=== PATIENT | female | born 1960 | race Caucasian/White ===

== ENCOUNTER 2019-08-16 19:45 | Emergency (ER) | payer OTHER, SELFPAY ==
--- NOTE | ~2019-08-16 | CT_ITS ---
EXAMINATION: CT abdomen pelvis wo con DATE: 08/16/2019 20:40 INDICATION: Right flank pain TECHNIQUE: Computed tomography (CT) of the abdomen and pelvis was performed without intravenous contr ast. Automated exposure control and iterative reconstruction technique were employed. Exam dose: 345 .26 mGy-cm total exam DLP. COMPARISON: 05/12/2017 CT abdomen pelvis FINDINGS: Mild chronic discoid scarring in the middle lobe. Stable several millimeter left lower lobe nodule likely due to old granulomatous disease. Normal heart size. No pericardial or pleural effusion. The liver, gallbladder, spleen, pancreas and adrenal glands are unremarkable on this limited noncontr ast examination. There is bilateral perinephric stranding No ureteral calculus or hydroureteronephrosis. There is atherosclerotic calcification of the abdominal aorta, iliac arteries but no aneurysm. No int raperitoneal or retroperitoneal or pelvic mass lesion or adenopathy or ascites. Status post hysterectomy. The urinary bladder is evacuated, is essentially unremarkable. There is mild colonic diverticulosis; no CT evidence of diverticulitis. There is some fluid levels in the right colon and small bowel but no abnormal small or large bowel dilatation, pneumatosis or intr aperitoneal free air. The appendix is not identified. IMPRESSION: Occasional small bowel and right colon air-fluid levels which may be due to enterocoliti s Mild colonic diverticulosis Bilateral perinephric stranding; consider urinalysis correlation to exclude pyelonephritis Status post hysterectomy The appendix is not identified Reviewed, dictated and finalized at [facility]. Reviewed, dictated and finalized at [facility]. IMPRESSION: Occasional small bowel and right colon air-fluid levels which may be due to enterocolitis Mild colonic diverticulosis Bilateral perinephric stranding; consider urinalysis correlation to exclude avis lonephritis Status post hysterectomy The appendix is not identified
[2019-08-16 19:48] VITALS: BP 126/94; PULSE 99; RESP 14; TEMP 36.8; O2SAT 100
--- NOTE | 2019-08-16 20:11 | ED.GENADULT ---
HPI - General Adult General Chief complaint: Urogenital-Female Stated complaint: i am having pain in my kidneys Time Seen by Provider: 08/16/19 19:57 Source: RN notes reviewed History of Present Illness HPI narrative: Patient presents emergency department from home for flank pain. Patient states symptoms began approximately 1 week ago. The pain is located in the right flank and does not radiate. Described as sharp and stabbing. Patient was seen by her PCP diagnosed with UTI and placed on 3-day course of antibiotics with minimal relief. She notes continued pain. States she took no pain medication today. Denies any fevers or chills chest pain shortness of breath diarrhea vomiting or any other symptoms. Related Data Allergies Allergy/AdvReac Type Severity Reaction Status Date / Time amitriptyline Allergy Mild Rash Verified 08/16/19 20:12 erythromycin base Allergy Mild Rash Verified 08/16/19 20:12 nitrofurantoin Allergy Unknown Unknown Verified 08/16/19 20:12 sulfamethoxazole Allergy Unknown Rash Verified 08/16/19 20:12 trimethoprim Allergy Unknown Rash Verified 08/16/19 20:12 Contrast Media Allergy Unknown Nausea and Uncoded 09/23/18 08:46 Vomiting Review of Systems Review of Systems: Narrative: Gen.: Denies fevers or chills ENT: Denies congestion Respiratory: Denies shortness of breath or cough CV: Denies chest pain or palpitations GI: See HPI denies burning, urgency, frequency or hematuria Musculoskeletal: Denies back pain or muscle pain Neuro: Denies numbness, tingling, weakness or focal weakness Skin: Denies rash Except as documented, all other systems reviewed and negative [facility] Past Medical History Medical History (Updated 08/16/19 @ 22:20 by Edis Caraballo DO) Diabetes mellitus Hypertension Seizures Family History Family History (Updated 05/28/18 @ 10:24 by DOCTOR UNKNOWN) Mother Diabetes mellitus Family history of congenital heart disease Father Family history of congenital heart disease Family history of malignant neoplasm Social History Social History (Updated 08/16/19 @ 20:12 by Edis Caraballo DO) Smoking status: Never smoker Alcohol intake: never Exam Narrative: Exam Narrative: APPEARANCE: No acute distress, nontoxic, resting in bed EYES: EOMI HEENT: Normocephalic, atraumatic, OMM RESPIRATORY: No respiratory distress Clear to auscultation bilaterally with no rhonchi wheezing or rales. CARDIOVASCULAR: Regular rate and rhythm without murmurs rubs or gallops. ABDOMINAL: Soft, nontender, nondistended, no rebound or guarding right flank tenderness no overlying rash, pain with rotation of the torso MUSCULOSKELETAl: Moves all extremities. No clubbing, cyanosis or edema. NEURO: Awake and alert. Following commands, speech normal, no focal deficits SKIN:: Warm, dry. No rashes lesions or abrasions PSYCHIATRIC: Normal affect/mood, Course Course Emergency Course: Reviewed CT scan. The patient with no abdominal pain or diarrhea repeat abdominal exam soft and nontender doubt any enterocolitis will treat for UTI Discussed with patient results of workup and diagnosis. Discussed need for follow-up with primary care, proper use of medication, and reasons to return to the emergency department. Patient understands and agrees to current treatment plan Vital Signs Vital signs: Vital Signs Temperature 98.2 F 08/16/19 19:48 Pulse Rate 99 08/16/19 19:48 Respiratory Rate 14 08/16/19 19:48 Blood Pressure 126/94 H 08/16/19 19:48 Pulse Oximetry 100 08/16/19 19:48 Temperature 98.2 F 08/16/19 19:48 Pulse Rate 87 08/16/19 21:43 Respiratory Rate 16 08/16/19 21:43 Blood Pressure 119/74 08/16/19 21:43 Pulse Oximetry 97 08/16/19 21:43 Medical Decision Making Vital Signs Vital Signs: Vital Signs Temperature 98.2 F 08/16/19 19:48 Pulse Rate 99 08/16/19 19:48 Respiratory Rate 14 08/16/19 19:48 Blood Pressure 126/94 H 08/16/19 19:48 Pulse Oxim
[2019-08-16 20:14] LABS: Basophils Absolute Auto 0.1 K/mm3 (0.0-0.1); Basophils Percent Auto 0.4 % (0.2-1.2); Eosinophils Absolute Auto 0.3 K/mm3 (0-0.3); Eosinophils Percent Auto 2.4 % (0-4.4); Hematocrit 40.9 % (37.0-47.0); Hemoglobin 13.4 g/dL (12.0-15.0); Immature Granulocyte Absolute 0.06 K/mm3 (0.00-0.031); Immature Granulocyte Percent A 0.5 % (0-0.5); Lymphocytes Absolute Auto 2.56 K/mm3 (0.9-3.2); Lymphocytes Percent Auto 22.9 % (18.3-44.2); Mean Corpuscular HGB Conc 32.8 g/dl (32-36); Mean Corpuscular Hemoglobin 29.6 pg (26-34); Mean Corpuscular Volume 90.5 fl (80-100); Monocytes Absolute Auto 0.7 K/mm3 (0.1-0.6); Monocytes Percent Auto 6.6 % (2.6-8.5); Neutrophils Absolute Auto 7.5 K/mm3 (1.3-6.7); Neutrophils Percent Auto 67.2 % (45.5-73.1); Platelet Count Result 349 k/mm3 (150-375); Red Blood Count 4.52 M/mm3 (4.2-5.4); White Blood Count 11.2 K/mm3 (4.5-10.0)
[2019-08-16] MEDS: SODIUM CHLORIDE 0.9% IV 1,000 ML 999 ML IV CONT (20:19)
[2019-08-16] MEDS: KETOROLAC 30 MG/ML VIAL (*BKC) IV PUSH (20:19)
[2019-08-16 20:27] LABS: Blood Urea Nitrogen 17 mg/dL (7-17); Carbon Dioxide 24 mmol/L (22-30); Chloride 101 mmol/L (98-107); Estimated CRCL calculation 38 ml/min; Estimated Glomerular Filt Rate 42; Glucose 224 mg/dL (65-105); Potassium 4.2 mmol/L (3.4-5.0); Sodium 137 mmol/L (137-145)
--- NOTE | 2019-08-16 21:26 | PC.NURSE ---
PT UNABLE TO URINATE. REFUSING CATH.
[2019-08-16 21:43] VITALS: BP 119/74; PULSE 87; RESP 16; O2SAT 97
[2019-08-16 22:12] LABS: Add Urine Microscopic? YES; Appearance Urine Clear (Clear); Bilirubin Urine Negative (Negative); Blood Urine Negative (Negative); Color Urine Yellow (Yellow); Glucose Urine UA Negative (Negative); Ketones Urine Trace mg/dL (Negative); Leukocyte Esterase Ur Trace LEU/UL (Negative); Mucus Urine Rare /lpf; Nitrate Urine Negative (Negative); Protein Urine 2+ mg/dL (Negative); Specific Grav Ur 1.023 (1.001-1.035); Squamous Epithelial Cell Urine Rare /hpf (Few); WBC Urine 21-30 /hpf
== END 2019-08-16 22:37 | disposition home or self-care (01) ==
PROVIDERS: Emergency Medicine; Emergency Provider Emergency Medicine
DX: N12 Tubulo-interstitial nephritis, not specified as acute or chronic (principal); K57.30 Diverticulosis of large intestine without perforation or abscess without bleeding; E11.9 Type 2 diabetes mellitus without complications; I10 Essential (primary) hypertension; G40.909 Epilepsy, unspecified, not intractable, without status epilepticus
CPT/HCPCS: 36415; 51701; 74176; 80048; 81001; 85025; 87086; 96361; 96374; 96375; 99284; J0696; J1885; J7030

== ENCOUNTER 2019-12-11 07:32 | Emergency (ER) | payer OTHER, SELFPAY ==
--- NOTE | ~2019-12-11 | CT_ITS ---
EXAMINATION: CT abdomen pelvis wo con DATE: 12/11/2019 08:33 INDICATION: Right-sided abdominal pain. TECHNIQUE: Computed tomography (CT) of the abdomen and pelvis was performed without intravenous contr ast. Automated exposure control and iterative reconstruction technique were employed. The dose-length product was 798.27 mGy-cm. COMPARISON: CT abdomen and pelvis 08/16/2019 FINDINGS: The visualized portions of the lung bases demonstrate mild atelectasis. No pleural effusion . The heart size is normal. There are coronary artery calcifications. No pericardial effusion. There is a small sliding hiatal hernia. There is diffuse hepatic steatosis. The gallbladder, spleen, pancre as, adrenal glands, and kidneys are normal. There is no urolithiasis. There is diverticulosis of the colon without evidence of diverticulitis. There are no dilated loops of bowel. The appendix is not vi sualized. There are no pathologically enlarged lymph nodes. There is no free intraperitoneal fluid. T here is mild lumbar spondylosis. IMPRESSION: 1. Small sliding hiatal hernia. 2. Diffuse hepatic steatosis. Reviewed, dictated and finalized at location [facility].
--- NOTE | ~2019-12-11 | XR_ITS ---
XR chest 1V portable DATE: 12/11/2019 08:08 INDICATION: Chest pain, back pain TECHNIQUE: Portable AP chest on 12/11/2019 at 0809 hours COMPARISON: 09/22/2018 portable AP chest FINDINGS: Heart size is normal. No hilar or mediastinal enlargement. No pulmonary infiltrate or conso lidation, pleural effusion or pulmonary vascular congestion or pneumothorax. Diffuse osteopenia. IMPRESSION: No active cardiopulmonary disease Reviewed, dictated and finalized at [facility].
--- NOTE | ~2019-12-11 | NM_ITS ---
EXAMINATION: NM pulmonary perfusion DATE: 12/11/2019 12:28 INDICATION: Back pain and shortness of breath TECHNIQUE: 5.019 mCi Tc-99m MAA by intravenous route. Scintigraphic images of the chest were obtaine d. COMPARISON: Chest radiograph dated 12/11/2019 FINDINGS: There is normal homogeneous perfusion throughout the lungs. No focal perfusion defects appreciated. IMPRESSION: 1. Normal study. Reviewed, dictated and finalized at [facility]. IMPRESSION: 1. Normal study.
[2019-12-11 08:03] VITALS: BP 142/95; PULSE 108; RESP 22; TEMP 37.2; O2SAT 97
[2019-12-11 08:07] LABS: Basophils Percent Auto 0.2 % (0.2-1.2); Eosinophils Percent Auto 0.2 % (0-4.4); Hematocrit 36.3 % (37.0-47.0); Hemoglobin 12.2 g/dL (12.0-15.0); Immature Granulocyte Absolute 0.06 K/mm3 (0.00-0.031); Immature Granulocyte Percent A 0.5 % (0-0.5); Lymphocytes Absolute Auto 0.68 K/mm3 (0.9-3.2); Lymphocytes Percent Auto 5.4 % (18.3-44.2); Mean Corpuscular HGB Conc 33.6 g/dl (32-36); Mean Corpuscular Hemoglobin 29.3 pg (26-34); Mean Corpuscular Volume 87.3 fl (80-100); Monocytes Percent Auto 7.6 % (2.6-8.5); Neutrophils Absolute Auto 10.8 K/mm3 (1.3-6.7); Neutrophils Percent Auto 86.1 % (45.5-73.1); Platelet Count Result 185 k/mm3 (150-375); Red Blood Count 4.16 M/mm3 (4.2-5.4); White Blood Count 12.6 K/mm3 (4.5-10.0)
[2019-12-11 08:09] LABS: Add Urine Microscopic? NO; Appearance Urine Clear (Clear); Bilirubin Urine Negative (Negative); Blood Urine Negative (Negative); Color Urine Yellow (Yellow); Glucose Urine UA Negative (Negative); Ketones Urine Negative (Negative); Leukocyte Esterase Ur Negative LEU/UL (Negative); Nitrate Urine Negative (Negative); Protein Urine Negative (Negative); Specific Grav Ur 1.015 (1.001-1.035); Urobilinogen Urine Negative mg/dL (<2.0)
--- NOTE | 2019-12-11 08:17 | ED.GENADULT ---
HPI - General Adult General Chief complaint: Back Pain/Injury Stated complaint: All Over Pain Time Seen by Provider: 12/11/19 07:43 Source: patient and family History of Present Illness HPI narrative: 59 years old white female presents with intermittent mid and lower back pain over 1 month ago. She denies any aggravating or relieving factors. Usually comes anytime and lasts for about 20 minutes then resolves. Patient also complaining of general body aches nausea and vomited twice today. Could not sleep because of the general body aches. Patient denies any fever, chills, chest pain, shortness of breath, headache, sore throat, exposure to anybody with COVID-19. History of diabetes, hypertension, hyperlipidemia, fibromyalgia. Patient smokes intermittently, does not drink or using drugs. Currently her main complaint is abdominal pain Related Data Home Medications Medication Instructions Recorded Confirmed aspirin 12/11/19 atorvastatin 12/11/19 carvedilol 12/11/19 celecoxib mg 12/11/19 cholecalciferol (vitamin D3) 1,250 mcg PO WEEKLY 12/11/19 12/11/19 clopidogrel 12/11/19 dulaglutide [Trulicity] mg SUBCUT 12/11/19 duloxetine mg PO 12/11/19 ezetimibe [Zetia] mg 12/11/19 fenofibrate mg 12/11/19 glipizide mg PO 12/11/19 12/11/19 insulin glargine [Lantus Solostar SUBCUT 12/11/19 U-100 Insulin] linaclotide [Linzess] 290 mcg PO DAILY 12/11/19 12/11/19 losartan 12/11/19 nitroglycerin [Nitro] 12/11/19 sitagliptin-metformin [Janumet XR] tablet PO 12/11/19 Allergies Allergy/AdvReac Type Severity Reaction Status Date / Time amitriptyline Allergy Mild Rash Verified 12/11/19 08:14 erythromycin base Allergy Mild Rash Verified 12/11/19 08:14 nitrofurantoin Allergy Unknown Unknown Verified 12/11/19 08:14 sulfamethoxazole Allergy Unknown Rash Verified 12/11/19 08:14 trimethoprim Allergy Unknown Rash Verified 12/11/19 08:14 Contrast Media Allergy Unknown Nausea and Uncoded 12/11/19 08:14 Vomiting Review of Systems Review of Systems: Narrative: CONSTITUTIONAL: Denies fever, chills, or sweats. EYES: Denies visual changes, redness, or discharge. ENT: Denies rhinorrhea, congestion, sore throat, or otalgia. CARDIOVASCULAR: Denies chest pain, palpitations, or edema. RESPIRATORY: Denies cough or dyspnea. GASTROINTESTINAL: Denies abdominal pain, nausea, vomiting, or diarrhea. GENITOURINARY: Denies dysuria or hematuria. SKIN: Denies rash or itching. MUSCULOSKELETAL: Denies back pain, joint pain, or myalgia. NEUROLOGIC: Denies headache, numbness, or weakness. PSYCHIATRIC: Denies anxiety or depression. [facility] Past Medical History Medical History Diabetes mellitus Hypertension Seizures Family History Family History Mother Diabetes mellitus Family history of congenital heart disease Father Family history of congenital heart disease Family history of malignant neoplasm Social History Social History Smoking status: Never smoker Alcohol intake: never Exam Narrative: Exam Narrative: General appearance: Well-developed, well-nourished, looks ill, at the bedside Skin: Normal color Head: Normocephalic, nontraumatic Eyes: Clear conjunctiva ENT: Oropharynx normal, ears normal, nose normal Neck: Supple, nontender Chest and respiratory: Airway patent, no respiratory distress, no accessory muscle use Heart: Regular rate/rhythm Abdomen: Soft, moderate tenderness right abdomen, no guarding or rebound, no organomegaly, quiet bowel sounds Vascular: Normal peripheral pulses, normal capillary refill. Musculoskeletal: Normal range of motion, nontender back Neurologic: Alert and oriented ?3, [employer] is normal as tested, no gross motor deficit
[2019-12-11 08:20] LABS: INR 1.1; Prothrombin Time 13.5 Seconds (11.1-14.7)
[2019-12-11 08:21] LABS: Partial Thromboplastin Time 29.7 SECONDS (22.3-36.8)
[2019-12-11] MEDS: HYDROmorphone HCL INJ (*CRX) 1 MG/ML SYR 0.5 MG IV PUSH ×2 (08:22→14:08)
[2019-12-11] MEDS: SODIUM CHLORIDE 0.9% IV 1,000 ML 999 ML IV CONT (08:22)
[2019-12-11 08:23] LABS: D Dimer 1.38 ug/mL (<0.48)
[2019-12-11] MEDS: ONDANSETRON INJ 4 MG/2 ML VIAL 8 MG IV PUSH (08:23)
[2019-12-11 08:24] LABS: Alanine Aminotransferase 24 U/L (4-35); Alkaline Phosphatase 121 U/L (38-126); Anion Gap 9 mmol/L (8-16); Aspartate Amino Transferase 31 U/L (14-36); Bilirubin,Total 0.6 mg/dL (0.2-1.3); Blood Urea Nitrogen 13 mg/dL (7-17); Calcium 9.5 mg/dL (8.4-10.2); Carbon Dioxide 22 mmol/L (22-30); Chloride 104 mmol/L (98-107); Estimated CRCL calculation 51 ml/min; Estimated Glomerular Filt Rate 51; Glucose 151 mg/dL (65-105); Sodium 135 mmol/L (137-145)
[2019-12-11 08:32] LABS: Troponin I < 0.012 ng/mL (0.000-0.034)
[2019-12-11 08:33] LABS: Erythrocyte Sedimentation Rate 28 mm/hr (0-20)
[2019-12-11 08:36] LABS: CRP 16.1 mg/dL (<1.0)
--- NOTE | 2019-12-11 09:05 | ECG_ITS ---
Measurements Intervals [place] Rate: 106 P: 26 OK: 155 QRS: -19 QRSD: 97 T: 49 QT: 319 QTc: 425 Interpretive Statements SINUS TACHYCARDIA DELAYED PRECORDIAL R/S TRANSITION BORDERLINE ST ABNORMALITY- HIGH LATERAL LEADS ABNORMAL ECG Electronically Signed On 12-11-2019 10:27:12 CDT by Fernando Bocanegra D.O.
[2019-12-11 09:30] VITALS: BP 112/87; PULSE 88; RESP 24; O2SAT 98
[2019-12-11] MEDS: ONDANSETRON INJ 4 MG/2 ML VIAL IV PUSH (14:06)
[2019-12-11 14:45] VITALS: BP 128/69; PULSE 95; RESP 14; O2SAT 96
== END 2019-12-11 14:45 | disposition home or self-care (01) ==
PROVIDERS: Emergency Provider Emergency Medicine
DX: M54.5 Low back pain (principal); M54.6 Pain in thoracic spine; R10.9 Unspecified abdominal pain; E11.9 Type 2 diabetes mellitus without complications; I10 Essential (primary) hypertension; E78.5 Hyperlipidemia, unspecified; M79.7 Fibromyalgia; Z79.82 Long term (current) use of aspirin; Z79.4 Long term (current) use of insulin; R00.0 Tachycardia, unspecified; R94.31 Abnormal electrocardiogram [ECG] [EKG]; K76.0 Fatty (change of) liver, not elsewhere classified; K44.9 Diaphragmatic hernia without obstruction or gangrene
CPT/HCPCS: 36415; 71045; 74176; 78580; 80053; 81003; 84484; 85025; 85380; 85610; 85652; 85730; 86140; 93005; 96361; 96374; 96375; 96376; 99284; A9540; J1170; J2405; J7030

== ENCOUNTER 2021-11-21 10:58 | Emergency (ER) | payer OTHER, SELFPAY ==
--- NOTE | ~2021-11-21 | XR_ITS ---
EXAMINATION: XR chest 2V DATE: 11/21/2021 13:02 INDICATION: Cough and shortness of breath TECHNIQUE: PA and lateral views of the chest are obtained. COMPARISON: 12/11/2019 FINDINGS: The lungs are free of acute opacities. No pleural effusion or pneumothorax. The cardiomedia stinal silhouette is normal. A coronary artery stent is noted. There is mild thoracic spondylosis. IMPRESSION: 1. No acute cardiopulmonary abnormality. Reviewed, dictated and finalized at [facility].
[2021-11-21 11:13] VITALS: BP 153/102; PULSE 97; RESP 18; TEMP 36.4; O2SAT 100
--- NOTE | 2021-11-21 12:46 | ED.URI ---
HPI - URI/Sore Throat General Chief Complaint: Upper Respiratory Infection Stated Complaint: I think I have RSV Time Seen by Provider: 11/21/21 11:46 History of Present Illness HPI Narrative: Patient is a 61-year-old female presenting with URI symptoms. Patient states that she was recently with her sister who also developed cold-like symptoms last week. Her sister tested positive for RSV. Patient states that she developed similar symptoms about 2 to 3 days ago. States she has nasal congestion as well as a cough. States she is concerned that she may have RSV. She is vaccinated for COVID-19. She denies headache, fevers, lightheadedness, chest pain, shortness of breath, abdominal pain, nausea or vomiting, diarrhea, leg swelling. Related Data Home Medications Medication Instructions Recorded Confirmed aspirin 81 mg tablet,delayed 12/11/19 release atorvastatin 40 mg tablet 12/11/19 carvedilol 12.5 mg tablet 12/11/19 celecoxib 100 mg capsule mg 12/11/19 cholecalciferol (vitamin D3) 1,250 1,250 mcg PO WEEKLY 12/11/19 12/11/19 mcg (50,000 unit) tablet clopidogrel 75 mg tablet 12/11/19 dulaglutide 1.5 mg/0.5 mL mg subcut 12/11/19 subcutaneous pen injector (Trulicity) duloxetine 60 mg capsule,delayed mg PO 12/11/19 release ezetimibe 10 mg tablet (Zetia) mg 12/11/19 fenofibrate 54 mg tablet mg 12/11/19 glipizide 2.5 mg tablet, extended mg PO 12/11/19 12/11/19 release 24 hr insulin glargine 100 unit/mL (3 subcut 12/11/19 mL) subcutaneous pen (Lantus Solostar U-100 Insulin) linaclotide 290 mcg capsule 290 mcg PO DAILY 12/11/19 12/11/19 (Linzess) losartan 100 mg tablet 12/11/19 nitroglycerin 0.2 mg/hr 12/11/19 transdermal 24 hour patch sitagliptin 50 mg-metformin ER tablet PO 12/11/19 1,000 mg tablet,extended release 24h mp (Janumet XR) Allergies Allergy/AdvReac Type Severity Reaction Status Date / Time amitriptyline Allergy Mild Rash Verified 11/21/21 11:15 erythromycin base Allergy Mild Rash Verified 11/21/21 11:15 nitrofurantoin Allergy Unknown Unknown Verified 11/21/21 11:15 sulfamethoxazole Allergy Unknown Rash Verified 11/21/21 11:15 trimethoprim Allergy Unknown Rash Verified 11/21/21 11:15 Contrast Media Allergy Unknown Nausea and Uncoded 12/11/19 08:14 Vomiting PMFSH Past Medical History Medical History Diabetes mellitus Hypertension Seizures Family History Family History Mother Diabetes mellitus Family history of congenital heart disease Father Family history of congenital heart disease Family history of malignant neoplasm Social History Social History Smoking status: Never smoker Alcohol intake: never Exam Narrative: GENERAL: Well-appearing, well-nourished, and in no acute distress. HEAD: Normocephalic, atraumatic. EYES: PERRLA and EOMI. ENT: + Nasal congestion. Mucous membranes moist. NECK: Supple. CHEST: Clear to auscultation. No respiratory distress. HEART: Regular rate and rhythm. No murmur heard. Normal peripheral pulses. ABDOMEN: Soft, nontender, nondistended, normal active bowel sounds. EXTREMITIES: Normal range of motion. No edema. SKIN: Warm, dry, no rash. NEURO: No focal deficits. Alert and oriented x3. PSYCH: Normal mood and affect. Course Course Emergency Course: Patient is a 61-year-old female presenting with URI symptoms. Patient is hypertensive, otherwise vitals are within normal limits. Patient is nontoxic and in no acute distress. Exam is remarkable for nasal congestion. Patient is negative for RSV, influenza, COVID-19. Chest x-ray shows no acute abnormalities. No focal consolidations. Patient likely has another respiratory virus. Discussed appropriate supportive care as well as return precautions. Recommended primary care follow-up. P
[2021-11-21 14:04] LABS: Influenza A QL RT-PCR Negative (Negative); Influenza B QL RT-PCR Negative (Negative); SARS-CoV-2 RNA PCR Negative
== END 2021-11-21 14:33 | disposition home or self-care (01) ==
PROVIDERS: Emergency Provider Emergency Medicine
DX: J06.9 Acute upper respiratory infection, unspecified (principal); Z20.822 Contact with and (suspected) exposure to COVID-19; E11.9 Type 2 diabetes mellitus without complications; I10 Essential (primary) hypertension; Z79.82 Long term (current) use of aspirin; Z79.4 Long term (current) use of insulin; Z79.84 Long term (current) use of oral hypoglycemic drugs
CPT/HCPCS: 71046; 87420; 87502; 99283; C9803; U0003; U0005

== ENCOUNTER 2022-01-30 16:22 | Emergency (ER) | payer OTHER, SELFPAY ==
[2022-01-30 16:47] VITALS: BP 135/79; PULSE 91; RESP 20; TEMP 36.1; O2SAT 100
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
== END 2022-01-30 17:29 | disposition home or self-care (01) ==
PROVIDERS: Emergency Provider Nurse Practitioner Family
DX: T23.262A Burn of second degree of back of left hand, initial encounter (principal); E11.9 Type 2 diabetes mellitus without complications; I10 Essential (primary) hypertension; Z79.82 Long term (current) use of aspirin; Z79.4 Long term (current) use of insulin; X12.XXXA Contact with other hot fluids, initial encounter
CPT/HCPCS: 99213; G0463

== ENCOUNTER 2022-03-03 13:57 | Emergency (ER) | payer OTHER, SELFPAY ==
[2022-03-03 14:06] VITALS: BP 136/77; PULSE 75; RESP 18; TEMP 36.1; O2SAT 97
--- NOTE | 2022-03-03 14:07 | ED.FEMALEGU ---
HPI - Female Genitourinary General Chief complaint: Urogenital-Female Stated complaint: Possible UTI Time Seen by Provider: 03/03/22 14:07 Source: patient Mode of arrival: ambulatory Limitations: no limitations History of Present Illness HPI Narrative: Viral is a 7-year-old female patient presenting to clinic today with complaints of possible urinary tract infection x2 weeks. She reports she has bladder tenderness, burning with urination, flank pain, lower abdominal pain. She reports she does get frequent urinary tract infections. She denies any fever or chills. Related Data Home Medications Medication Instructions Recorded Confirmed aspirin 81 mg tablet,delayed 81 mg PO DAILY 12/11/19 03/03/22 release atorvastatin 40 mg tablet 40 mg PO DAILY 12/11/19 03/03/22 carvedilol 12.5 mg tablet 12.5 mg PO DAILY 12/11/19 03/03/22 celecoxib 100 mg capsule 100 mg PO DAILY 12/11/19 03/03/22 cholecalciferol (vitamin D3) 1,250 1,250 mcg PO WEEKLY 12/11/19 03/03/22 mcg (50,000 unit) tablet clopidogrel 75 mg tablet 75 mg PO DAILY 12/11/19 03/03/22 dulaglutide 1.5 mg/0.5 mL 1.5 mg subcut WEEKLY 12/11/19 03/03/22 subcutaneous pen injector (Trulicity) duloxetine 60 mg capsule,delayed 60 mg PO DAILY 12/11/19 03/03/22 release ezetimibe 10 mg tablet (Zetia) 10 mg PO DAILY 12/11/19 03/03/22 fenofibrate 54 mg tablet 54 mg PO DAILY 12/11/19 03/03/22 glipizide 2.5 mg tablet, extended 2.5 mg PO DAILY 12/11/19 03/03/22 release 24 hr insulin glargine 100 unit/mL (3 100 unit subcut DAILY 12/11/19 03/03/22 mL) subcutaneous pen (Lantus Solostar U-100 Insulin) linaclotide 290 mcg capsule 290 mcg PO DAILY 12/11/19 03/03/22 (Linzess) losartan 100 mg tablet 100 mg PO DAILY 12/11/19 03/03/22 sitagliptin phos 50 mg-metformin 1 tablet PO DAILY 12/11/19 03/03/22 ER 1,000 mg tablet,extend rel 24h mp (Janumet XR) calcium carbonate 600 mg calcium 1,500 mg PO DAILY 03/03/22 03/03/22 (1,500 mg) tablet Allergies Allergy/AdvReac Type Severity Reaction Status Date / Time amitriptyline Allergy Mild Rash Verified 03/03/22 14:17 erythromycin base Allergy Mild Rash Verified 03/03/22 14:17 nitrofurantoin Allergy Unknown Unknown Verified 03/03/22 14:17 sulfamethoxazole Allergy Unknown Rash Verified 03/03/22 14:17 trimethoprim Allergy Unknown Rash Verified 03/03/22 14:17 Contrast Media Allergy Unknown Nausea and Uncoded 03/03/22 14:17 Vomiting Review of Systems Review of Systems: Pertinent positives per HPI. Patient denies any fever, chills, rash, headache, visual changes, dizziness, cough, runny nose, sore throat, shortness of breath, chest pain, palpitations, nausea, vomiting, diarrhea, constipation. PMFSH Past Medical History Medical History Diabetes mellitus Hypertension Seizures Family History Family History Mother Diabetes mellitus Family history of congenital heart disease Father Family history of congenital heart disease Family history of malignant neoplasm Social History Social History Smoking status: Never smoker Alcohol intake: never Comments At the time of my signature, I reviewed and agree with the nursing past medical, surgical, social, and family history. There is no relevant family history pertinent to the patient complaint. Exam Narrative: General: Well-developed, well nourished, in no apparent distress. Head: Normocephalic, atraumatic. Cardio: Regular rate and rhythm, s1 and s2 normal, no murmur appreciated. Resp: Clear to auscultation bilaterally, no rhonchi, rales, wheezing or rubs. Abdomen: Soft, pliable, bowel sounds present in all quadrants, suprapubic and lower abdominal tenderness to palpation, no organomegly, postive bilateral CVAT tenderness. Course Course Emergency Course: Portions of this record ma
== END 2022-03-03 14:33 | disposition home or self-care (01) ==
PROVIDERS: Emergency Provider Nurse Practitioner Family
DX: N39.0 Urinary tract infection, site not specified (principal); E11.9 Type 2 diabetes mellitus without complications; I10 Essential (primary) hypertension; Z79.82 Long term (current) use of aspirin
CPT/HCPCS: 81003; 87077; 87086; 87186; 99213; G0463

== ENCOUNTER 2022-08-12 20:05 | Emergency (ER) | payer OTHER, SELFPAY ==
--- NOTE | ~2022-08-12 | XR_ITS ---
AP and oblique views of the right ribs Clinical History: Pain Findings: No rib fracture is seen. Osseous alignment is anatomic. Lungs are clear, without focal cons olidation or pleural effusion. Cardiomediastinal contour is within normal limits. Soft tissues are un remarkable. Impression: No rib fracture is seen. Reviewed, dictated and finalized at [facility]. Impression: No rib fracture is seen.
--- NOTE | ~2022-08-12 | XR_ITS ---
EXAMINATION: XR chest 2V DATE: 08/12/2022 20:29 INDICATION: Right-sided chest pain post fall 4 days prior TECHNIQUE: AP and lateral views of the chest were obtained. COMPARISON: Chest radiograph dated 11/21/2021 FINDINGS: The lungs remain clear with no focal airspace opacities, pulmonary edema, pleural effusion or pneumot horax. Heart size is normal. Coronary artery stenting. Status post distal right clavicle resection. IMPRESSION: 1. No acute cardiopulmonary disease. Reviewed, dictated and finalized at location A.
[2022-08-12 20:10] VITALS: BP 126/80; PULSE 105; RESP 18; TEMP 36.6; O2SAT 99
--- NOTE | 2022-08-12 20:10 | ECG_ITS ---
Measurements Intervals [place] Rate: 97 P: 38 OR: 132 QRS: 15 QRSD: 97 T: 76 QT: 347 QTc: 442 Interpretive Statements SINUS RHYTHM BORDERLINE R WAVE PROGRESSION, ANTERIOR LEADS BASELINE ARTIFACT- I, II, III, AVR, AVL, AVF, V1-V6 BORDERLINE ECG COMPARED TO ECG 12/11/2019 07:42:59 SINUS RHYTHM NOW PRESENT Electronically Signed On 08-12-2022 21:31:59 CDT by Fernando Bocanegra D.O.
[2022-08-12 21:13] VITALS: BP 130/68; PULSE 87; RESP 20; O2SAT 96
[2022-08-12 21:15] VITALS: BP 134/62; PULSE 85; RESP 20; O2SAT 98
--- NOTE | 2022-08-12 21:21 | ED.FALL ---
HPI - Fall General Chief Complaint: Fall Stated Complaint: rib pain Time Seen by Provider: 08/12/22 21:14 Source: patient Mode of arrival: ambulatory Limitations: no limitations History of Present Illness HPI Narrative: This is a 62-year-old female that presents to the emergency department for right-sided rib pain. Reports this has been ongoing since a fall 3 days ago. Reports she slipped in her bathroom and fell onto her toilet. Reports she has had pain on her right mid ribs. Worse with movement and deep breathing. Denies shortness of breath, abdominal pain or vomiting. Related Data Home Medications Medication Instructions Recorded Confirmed aspirin 81 mg tablet,delayed 81 mg PO DAILY 12/11/19 03/03/22 release atorvastatin 40 mg tablet 40 mg PO DAILY 12/11/19 03/03/22 carvedilol 12.5 mg tablet 12.5 mg PO DAILY 12/11/19 03/03/22 cholecalciferol (vitamin D3) 1,250 1,250 mcg PO WEEKLY 12/11/19 03/03/22 mcg (50,000 unit) tablet clopidogrel 75 mg tablet 75 mg PO DAILY 12/11/19 03/03/22 dulaglutide 1.5 mg/0.5 mL 1.5 mg subcut WEEKLY 12/11/19 03/03/22 subcutaneous pen injector (Trulicity) duloxetine 60 mg capsule,delayed 60 mg PO DAILY 12/11/19 03/03/22 release ezetimibe 10 mg tablet (Zetia) 10 mg PO DAILY 12/11/19 03/03/22 fenofibrate 54 mg tablet 54 mg PO DAILY 12/11/19 03/03/22 glipizide 2.5 mg tablet, extended 2.5 mg PO DAILY 12/11/19 03/03/22 release 24 hr insulin glargine 100 unit/mL (3 100 unit subcut DAILY 12/11/19 03/03/22 mL) subcutaneous pen (Lantus Solostar U-100 Insulin) linaclotide 290 mcg capsule 290 mcg PO DAILY 12/11/19 03/03/22 (Linzess) losartan 100 mg tablet 100 mg PO DAILY 12/11/19 03/03/22 sitagliptin phos 50 mg-metformin 1 tablet PO DAILY 12/11/19 03/03/22 ER 1,000 mg tablet,extend rel 24h mp (Janumet XR) calcium carbonate 600 mg calcium 1,500 mg PO DAILY 03/03/22 03/03/22 (1,500 mg) tablet Allergies Allergy/AdvReac Type Severity Reaction Status Date / Time amitriptyline Allergy Mild Rash Verified 03/03/22 14:17 erythromycin base Allergy Mild Rash Verified 03/03/22 14:17 nitrofurantoin Allergy Unknown Unknown Verified 03/03/22 14:17 sulfamethoxazole Allergy Unknown Rash Verified 03/03/22 14:17 trimethoprim Allergy Unknown Rash Verified 03/03/22 14:17 Contrast Media Allergy Unknown Nausea and Uncoded 03/03/22 14:17 Vomiting Review of Systems Review of Systems: CONSTITUTIONAL: Denies fever CARDIOVASCULAR: Reports chest/rib pain. RESPIRATORY: Denies cough or dyspnea. GASTROINTESTINAL: Denies abdominal pain, nausea, vomiting All systems reviewed & are unremarkable except as noted in HPI and below PMFSH Past Medical History Medical History (Updated 08/12/22 @ 23:42 by Isha Mendes PA-C) Diabetes mellitus History of coronary artery disease History of fibromyalgia Hypertension Seizures Family History Family History Mother Diabetes mellitus Family history of congenital heart disease Father Family history of congenital heart disease Family history of malignant neoplasm Social History Social History (Updated 08/12/22 @ 21:22 by Isha Mendes PA-C) Alcohol intake: never Exam Narrative: GENERAL: Well-appearing, well-nourished, and in no acute distress. HEAD: Normocephalic, atraumatic. EYES: EOMI. CHEST: Clear to auscultation. No respiratory distress. No wheezes rales or rhonchi. Tender to palpation of the right mid chest wall HEART: Regular rate and rhythm. No murmur heard. Normal peripheral pulses. ABDOMEN: Soft, nontender, nondistended, normal active bowel sounds. EXTREMITIES: Normal range of motion. No edema. SKIN: Warm, dry, no rash. NEURO: No focal deficits. Alert and oriented x3. PSYCH: Normal mood and affect Course Course Emergency Course: Patient and family updated on work-up and agree with plan of care. Patient resting comfortably Vital Signs Vital signs
[2022-08-12] MEDS: diazePAM INJ (*CRX) 10 MG/2 ML SYRINGE 5 MG IM (21:35)
[2022-08-12] MEDS: ACETAMINOPHEN 500 MG TABLET 1000 MG PO (21:35)
[2022-08-12 23:55] VITALS: BP 126/67; PULSE 73; RESP 20; O2SAT 97
== END 2022-08-13 | disposition home or self-care (01) ==
PROVIDERS: Emergency Provider Physician Assistant
DX: S20.211A Contusion of right front wall of thorax, initial encounter (principal); E11.9 Type 2 diabetes mellitus without complications; Z79.4 Long term (current) use of insulin; G40.909 Epilepsy, unspecified, not intractable, without status epilepticus; I25.10 Atherosclerotic heart disease of native coronary artery without angina pectoris; W01.0XXA Fall on same level from slipping, tripping and stumbling without subsequent striking against object, initial encounter; I10 Essential (primary) hypertension
CPT/HCPCS: 71046; 71100; 93005; 96372; 99284; A9270; J3360

== ENCOUNTER 2022-10-27 13:55 | Emergency (ER) | payer OTHER, SELFPAY ==
[2022-10-27 14:02] VITALS: BP 120/67; PULSE 87; RESP 20; TEMP 36.6; O2SAT 99
--- NOTE | 2022-10-27 14:06 | ED.FEMALEGU ---
HPI - Female Genitourinary General Chief complaint: Urogenital-Female Stated complaint: kidney inf Time Seen by Provider: 10/27/22 14:00 Source: patient Mode of arrival: ambulatory Limitations: no limitations History of Present Illness HPI Narrative: Carley is a 62-year-old female patient presenting with complaints of possible kidney infection. She reports she is having burning with urination low back pain x2 months. States that she has had a history of kidney infections in the past and was hoping it would go away on its own. She denies any known fever but has had some chills. History of [id number]. Had small bowel movement last night. She is afebrile in the clinic today and non toxic appearing. Related Data Home Medications Medication Instructions Recorded Confirmed aspirin 81 mg tablet,delayed 81 mg PO DAILY 12/11/19 10/27/22 release atorvastatin 40 mg tablet 40 mg PO DAILY 12/11/19 10/27/22 carvedilol 12.5 mg tablet 12.5 mg PO DAILY 12/11/19 10/27/22 cholecalciferol (vitamin D3) 1,250 1,250 mcg PO WEEKLY 12/11/19 10/27/22 mcg (50,000 unit) tablet clopidogrel 75 mg tablet 75 mg PO DAILY 12/11/19 10/27/22 dulaglutide 1.5 mg/0.5 mL 1.5 mg subcut WEEKLY 12/11/19 10/27/22 subcutaneous pen injector (Trulicity) duloxetine 60 mg capsule,delayed 60 mg PO DAILY 12/11/19 10/27/22 release ezetimibe 10 mg tablet (Zetia) 10 mg PO DAILY 12/11/19 10/27/22 fenofibrate 54 mg tablet 54 mg PO DAILY 12/11/19 10/27/22 glipizide 2.5 mg tablet, extended 2.5 mg PO DAILY 12/11/19 10/27/22 release 24 hr insulin glargine 100 unit/mL (3 100 unit subcut DAILY 12/11/19 10/27/22 mL) subcutaneous pen (Lantus Solostar U-100 Insulin) linaclotide 290 mcg capsule 290 mcg PO DAILY 12/11/19 10/27/22 (Linzess) losartan 100 mg tablet 100 mg PO DAILY 12/11/19 10/27/22 sitagliptin phos 50 mg-metformin 1 tablet PO DAILY 12/11/19 10/27/22 ER 1,000 mg tablet,extend rel 24h mp (Janumet XR) calcium carbonate 600 mg calcium 1,500 mg PO DAILY 03/03/22 10/27/22 (1,500 mg) tablet Allergies Allergy/AdvReac Type Severity Reaction Status Date / Time amitriptyline Allergy Mild Rash Verified 10/27/22 14:01 erythromycin base Allergy Mild Rash Verified 10/27/22 14:01 nitrofurantoin Allergy Unknown Unknown Verified 10/27/22 14:01 sulfamethoxazole Allergy Unknown Rash Verified 10/27/22 14:01 trimethoprim Allergy Unknown Rash Verified 10/27/22 14:01 Contrast Media Allergy Unknown Nausea and Uncoded 10/27/22 14:01 Vomiting Review of Systems Review of Systems: Pertinent positives per HPI. Patient denies any fever, chills, rash, headache, visual changes, dizziness, cough, runny nose, sore throat, shortness of breath, chest pain, palpitations, nausea, vomiting, diarrhea, constipation PMFSH Past Medical History Medical History Diabetes mellitus History of coronary artery disease History of fibromyalgia Hypertension Seizures Family History Family History Mother Diabetes mellitus Family history of congenital heart disease Father Family history of congenital heart disease Family history of malignant neoplasm Social History Social History Alcohol intake: never Comments At the time of my signature, I reviewed and agree with the nursing past medical, surgical, social, and family history. There is no relevant family history pertinent to the patient complaint. Exam Narrative: General: Well-developed, well nourished, in no apparent distress. Head: Normocephalic, atraumatic. Cardio: Regular rate and rhythm, s1 and s2 normal, no murmur appreciated. Resp: Clear to auscultation bilaterally, no rhonchi, rales, wheezing or rubs. Abdomen: Soft, pliable, bowel sounds present in all quadrants, tender to palpation over the suprapubic area and in gen
== END 2022-10-27 14:27 | disposition home or self-care (01) ==
PROVIDERS: Emergency Provider Nurse Practitioner Family
DX: N39.0 Urinary tract infection, site not specified (principal); B96.20 Unspecified Escherichia coli [E. coli] as the cause of diseases classified elsewhere; E11.9 Type 2 diabetes mellitus without complications; I25.10 Atherosclerotic heart disease of native coronary artery without angina pectoris; M79.7 Fibromyalgia; I10 Essential (primary) hypertension; Z79.4 Long term (current) use of insulin; Z79.82 Long term (current) use of aspirin
CPT/HCPCS: 81003; 87077; 87086; 87186; 99213; G0463

== ENCOUNTER 2022-11-26 08:50 | Outpatient (CLI) | payer OTHER, SELFPAY ==
--- NOTE | ~2022-11-26 | DEXA_ITS ---
Bone Density Report Name: JOSEPH SANCHEZ Age: 62 Sex: Female Ethnicity: White Date of : 1960 Indication: postmenopausal; screening for osteoporosis; height loss; inflammatory bowel disease; hysterectomy; Referring Provider: LEILA JON Study: Bone densitometry was performed. Exam Date: November 26, 2022 Accession number: [id number] Bone Density: Region BMD T-score Z-score Classification AP Spine(L1-L4) 0.827 -2.0 -0.5 Osteopenia Femoral Neck (Left) 0.551 -2.7 -1.3 Osteoporosis Total Hip (Left) 0.699 -2.0 -1.0 Osteopenia Femoral Neck (Right) 0.608 -2.2 -0.8 Osteopenia Total Hip (Right) 0.711 -1.9 -0.9 Osteopenia Total Hip Mean 0.705 -2.0 -1.0 Osteopenia World Health Organization criteria for BMD impression classify patients as: Normal (T-score at or above -1.0), Osteopenia (T-score between -1.0 and -2.5), or Osteoporosis (T-score at or below -2.5). 10-year Fracture Risk: FRAX not reported because: Some T-score for Spine Total or Hip Total or Femoral Neck at or below -2.5 Clinical Information Provided by Patient: Smokes Has used the following medications: Vitamin D, Calcium Has the following medical conditions: Inflammatory bowel diseases, Hysterectomy Patient maximum height was 68 Menopause Age: 26 No regular weight bearing exercise Onset of menses at age 12 Number of children 2 Impression: The patient has osteoporosis, based on the Left Femoral Neck T-score. The patient has risk factors, including: smoking. Discussion: INCREASED RISK OF FRACTURE. BONE DENSITY IS UNDESIRABLY LOW AT ONE OR MORE SKELETAL SITES, CONSISTENT WITH POSTMENOPAUSAL OSTEOPOROSIS. This patient's lowest T-score meets the World Health Organization's (WHO) criteria for osteoporosis at one or more sites (T-score -2.5 or below). In untreated patients, the risk of osteoporotic fracture increases approximately two-fold for each 1.0 SD decrease in T-score. Low bone density is not the only risk factor for fracture; also consider factors such as patient's age, frailty or poor health, risk of falling, risk of injury, previous osteoporotic fracture, family history of osteoporosis, cigarette smoking, low body weight, etc. Not everyone with low bone mineral density has osteoporosis; osteomalacia and other metabolic bone disorders should also be considered. Patients who have osteoporosis should be evaluated for specific diseases and conditions (secondary causes) that may cause or contribute to bone loss. The [place] Association of Clinical Endocrinologists (AACE) and National Osteoporosis Foundation (NOF) recommend pharmacologic intervention for all postmenopausal women whose T-score is in this range. The patient should follow a healthful lifestyle (good nutrition with adequate calcium and vitamin D, and appropriate weight-bearin
== END 2022-11-26 08:51 | disposition home or self-care (01) ==
DX: M81.0 Age-related osteoporosis without current pathological fracture (principal); M85.88 Other specified disorders of bone density and structure, other site; M85.852 Other specified disorders of bone density and structure, left thigh; M85.851 Other specified disorders of bone density and structure, right thigh
CPT/HCPCS: 77080

== ENCOUNTER 2023-08-07 12:45 | Outpatient (RCR) | payer OTHER, SELFPAY ==
--- NOTE | 2023-08-01 14:47 | OPREHPOC ---
Outpatient Therapy Plan of Care This is a Multidisciplinary Plan of Care that may contain components documented by all disciplines (PT, OT, and ST.) PT Problem 1 PT Problem #1 Knowledge Deficit PT Goal 1 Goal 1. Patient will perform independent HEP Target Visit 2 PT Problem 2 PT Problem #2 Pain PT Goal 1 Goal 1. Abdominal pain no higher than 3/10 and will not limit ADL's Target Visit 3 PT Problem 3 PT Problem #3 Impaired Functional ADLs PT Goal 1 Goal 1. Patient will report BM at least 5 days out of 7 Target Visit 3
--- NOTE | 2023-08-01 14:47 | PTOPEVAL1 ---
Assessment and note entered by Sunshine Harden DPT Evaluation Information Assessment Status Evaluation Subjective Information Pt reports a history of bowel issues since her hysterectomy in and have been getting worse over time. States after a later surgery to remove an ovary she was told there was extensive scar tissue. Had a colonoscopy recently and reports the MD had difficulty performing it due to the scar tissue. Also had anal manometry test recently and was unable to expel balloon. Voids 7-9 times a day , 1-3 times a night. Denies any kind of urinary incontinence. Can old urge to void as long as needed. Denies pain with urination. BM frequency fluctuates, may be daily but could also be 3-4 days in between. Denies rectal pain but does have abdominal pain most days of the week. Highest pain 8/10 and lowest 0/10. Denies fecal incontinence. Denies a history of pelvic pain other than during manometry. Pt has been 3 times, 2 vaginal deliveries and episiotomy with both. Pt drinks water throughout the day, sometimes sugar free lemonade. Two cups of coffee in the morning with creamer. Very infrequent alcohol intake. States she eats a lot of raw vegetables, chicken. Tries to avoid red meat, minimal dairy because cheese increases constipation. Does not eat breakfast if I eat too early I will throw up . Pt reports sometimes she is unable to do her typical activities if her abdominal pain is too high. Pt is retired. Patient goal: reduce pain No return appointment with MD is scheduled. Has been diagnosed with IBS-C, endometriosis (led to hysterectomy) and fibromyalgia, diabetes. Reported Pain Level Pain Score Mild Pain: Valverde Gregory Assessment PT Clinical Summary The patient is presenting to skilled therapy with a history of constipation and abdominal pain as well as a history of IBS-C, fibromyalgia, and endometriosis. She presents with decreased hip and core strength and likely increased pelvic floor muscle tone. Pt does not consent to any kind of internal pelvic assessment this date. She will benefit from therapy to address core strength and possible increased muscle tone, as well as for education about di
--- NOTE | 2023-08-13 08:31 | PTOPDC ---
Assessment and note entered by Sunshine Harden, DPT Evaluation Information Assessment Status Discharge - Pt Not Present Subjective Information - Assessment PT Clinical Summary The patient is self discharging at this time due to a family emergency and she will be out of town for an extended period of time. Plan of Care PT Services Indicated No
== END 2023-08-13 10:25 | disposition home or self-care (01) ==
LOC: ANHPT 12:45
DX: R27.8 Other lack of coordination (principal); K59.04 Chronic idiopathic constipation; R10.9 Unspecified abdominal pain; G89.29 Other chronic pain
CPT/HCPCS: 97014; 97110; 97140; 97161; 97530; G0283

== ENCOUNTER 2025-01-28 08:50 | Outpatient (CLI) | payer OTHER, SELFPAY ==
--- NOTE | ~2025-01-28 | US_ITS ---
EXAMINATION: US arterial ankle brachial ind DATE: 01/28/2025 09:35 INDICATION: Claudication. Other specified signs and symptoms involving the circulatory system. TECHNIQUE: Segmental pressures and plethysmographic and Doppler waveforms of the brachial and lower extremity arteries were obtained. COMPARISON: None. FINDINGS: Right and left brachial artery pressures of 136 mm Hg and 140 mm Hg, respectively, are concordant (normal difference <= 30 mmHg). The right ankle-brachial index (NIRANJAN) is 1.07 (normal >= 0.9-1.0). The right great toe-brachial index (TBI) is 0.38 (normal >= 0.65). Arterial Doppler waveforms demonstrate brisk systolic upstrokes at both right posterior tibial and dorsalis pedis arteries. The left NIRANJAN is 1.00. The left TBI is 0.47. Arterial Doppler waveforms demonstrate brisk systolic upstrokes at both left posterior tibial and dorsalis pedis arteries. IMPRESSION: 1. Arterial occlusive disease to the bilateral lower limbs with normal bilateral ABIs and mildly decreased left and moderately decreased right TBIs. Reviewed, dictated and finalized at location A. [facility] IMPRESSION: 1. Arterial occlusive disease to the bilateral lower limbs with normal bilatera l ABIs and mildly decreased left and moderately decreased right TBIs.
--- OUTSIDE RECORDS SUMMARY | 2025-01-28 09:08 | XMS_ITS | Patient Health Record ---
Author Organization [facility] Address [address] [place], [place] [id number] Care Team Providers Care Forest Fire Fighters Dispatcher Name Role Phone TANA Barriga Unavailable [phone] Reason For Referral No Information Social History Social History Additional Details Category Social Info Options Details Migrated Social History Migrated Social History History of tobacco use : Current everyday tobacco user , Alcohol intake : , Smoking Status : Current everyday tobacco user Plan Of Treatment No Information Insurance Providers Payer Name Payer Address Payer Phone Subscriber Number Group Number Insured Name Patient Relationship to Insured Coverage Start Date Coverage End Date [facility] [address] [place] [phone] [id number] IZAIAH SANCHEZ Spouse - patient is the spouse of the insured
--- OUTSIDE RECORDS SUMMARY | 2025-01-28 09:08 | XMS_ITS | Encounter Summary ---
Author Organization [facility] Address [address] [place] [address] Care Team Providers Care Gas Charger Name Role Phone Nicholas Ritchie MD Primary Care Provider [phone] Jennifer Estrella MD Primary Care Provider Nicholas Ritchie MD Primary Care Provider [phone] Betty Veliz DO Primary Care Provider [phone] Rajiv Hawley DO Primary Care Provider [phone] Daniel Esposito MD Unavailable [phone] Magdiel [facility] Primary Care Provider [phone] Ezekiel Perrin MD Primary Care Provider [phone] Britney Harris NP Primary Care Provider [phone] Encounter Details Date Type Department Care Team (Late st Contact Info) Description 05/13/2017 Orders Only [facility] Health Information Management [address] [place] [id number] Scanning, Provider Social History Tobacco Use Types Packs/Day Years Used Date Smoking Tobacco: Light Smoker Alcohol Use Standard Drinks/Week Comments Yes 0 (1 standard drink = 0.6 oz pur e alcohol) Comments No Sex and Gender Information Value Date Recorded Sex Assigned at Not on file Legal Sex 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 Provider Scanning CV CARDIAC SERVICES PROCEDURES Final Result documented in this encounter Visit Diagnoses Not on filedocumented in this encounter Care Teams Gas Charger Relationship Specialty Start Date End Date Nicholas Ritchie MD PCP - General Internal Medicine 03/28/17 06/20/17 Jennifer Estrella MD [address] [place], [place] [address] PCP - General Family Practice 06/21/17 08/14/18 Nicholas Ritchie MD PCP - General Internal Medicine 08/15/18 05/15/20 Betty Veliz DO [address], [place] [address] PCP - General Family Medicine 05/23/20 12/04/21 Rajiv Hawley DO [address], [place] [address] PCP - General Internal Medicine 12/05/21 12/19/23 [facility] [address] [place] [address] PCP - General 12/20/23 10/06/24 Ezekiel Perrin MD [address] [id number] PCP - General Family Medicine 10/07/24 01/04/25 Britney Harris NP [address] [address] PCP - General Family Medicine 01/05/25 Daniel Esposito MD [address] [place] [address] [facility] Cardiovascular Disease 06/19/23 documented as of this encounter
--- OUTSIDE RECORDS SUMMARY | 2025-01-28 09:08 | XMS_ITS | Encounter Summary ---
Author Organization [facility] Healthcare Address [address] [place] [address] Care Team Providers Care Executive Vice President And Chief Operating Officer Name Role Phone Nicholas Ritchie MD Primary Care Provider [phone] Jennifer Estrella MD Primary Care Provider Nicholas Ritchie MD Primary Care Provider [phone] Betty Veliz DO Primary Care Provider [phone] Rajiv Hawley DO Primary Care Provider [phone] Daniel Esposito MD Unavailable [phone] Magdiel [facility] Primary Care Provider [phone] Ezekiel Perrin MD Primary Care Provider [phone] Britney Harris NP Primary Care Provider [phone] Encounter Details Date Type Department Care Team (Late st Contact Info) Description 05/15/2017 Orders Only [facility] [place] Management [address] [place] [id number] Scanning, Provider Social History Tobacco Use Types Packs/Day Years Used Date Smoking Tobacco: Light Smoker Alcohol Use Standard Drinks/Week Comments Yes 0 (1 standard drink = 0.6 oz pur e alcohol) Comments No Sex and Gender Information Value Date Recorded Sex Assigned at Not on file Legal Sex 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 Gender Identity Not on file Sexual Orientation Not on file documented as of this encounter Plan of Treatment Not on file documented as of this encounter Procedures Procedure Name Priority Date/Time Associated Diagnosis Comments SCAN - LABS 05/15/2017 CARDIOLOGY DOCUMENT SCAN 05/14/2017 documented in this encounter Results * SCAN - LABS (05/15/2017) us Provider Scanning Final Result * Cardiology Document Scan (05/14/2017) Anatomical Region Laterality Modality Other us Provider Scanning CV CARDIAC SERVICES PROCEDURES Edited Result - Final documented in this encounter Visit Diagnoses Not on filedocumented in this encounter Care Teams Executive Vice President And Chief Operating Officer Relationship Specialty Start Date End Date Nicholas Ritchie MD PCP - General Internal Medicine 03/28/17 06/20/17 Jennifer Estrella MD [address], [place] [address] PCP - General Family Practice 06/21/17 08/14/18 Nicholas Ritchie MD PCP - General Internal Medicine 08/15/18 05/15/20 Betty Veliz DO [address], [place] [address] PCP - General Family Medicine 05/23/20 12/04/21 Rajiv Hawley, [address], [place] [address] PCP - General Internal Medicine 12/05/21 12/19/23 [facility] [address] [place] [address] PCP - General 12/20/23 10/06/24 Ezekiel Perrin MD [id number] [place] [address] PCP - General Family Medicine 10/07/24 01/04/25 Britney Harris NP [address] [address] PCP - General Family Medicine 01/05/25 Daniel Esposito MD [address] [address] Artist'S Model Cardiovascular Disease 06/19/23 documented as of this encounter
--- OUTSIDE RECORDS SUMMARY | 2025-01-28 09:09 | XMS_ITS | Clinical Summary ---
Author Organization [facility] Address [address] [place] [address] Care Team Providers Care Respiratory Care Faculty Name Role Phone No, Pcp CASING SEWER Primary Care Provider Unavailabl e Social History Tobacco Use Types Packs/Day Years Used Date Smoking Tobacco: Never Assessed Comments Unknown Sex and Gender Information Value Date Recorded Sex Assigned at Not on file Legal Sex Female 10:52 AM EST Gender Identity Not on file Sexual Orientation Not on file Plan of Treatment Not on file Medical Devices Not on file Care Teams Respiratory Care Faculty Relationship Specialty Start Date End Date No, Pcp, CASING SEWER N/A Do not use PCP - General Family Medicine 12/14/19
--- OUTSIDE RECORDS SUMMARY | 2025-01-28 09:09 | XMS_ITS | Encounter Summary ---
Author Organization [facility] Healthcare Address [address] [place] [address] Care Team Providers Care Hiv Nurse Name Role Phone Elías Flowers MD Primary Care Provider [phone] Nicholas Ritchie MD Primary Care Provider [phone] Jennifer Estrella MD Primary Care Provider Nicholas Ritchie MD Primary Care Provider [phone] Betty Veliz DO Primary Care Provider [phone] Rajiv Hawley DO Primary Care Provider [phone] Daniel Esposito MD Unavailable [phone] [facility] Primary Care Provider [phone] Ezekiel Perrin MD Primary Care Provider [phone] Britney Harris NP Primary Care Provider [phone] Encounter Details Date Type Department Care Team (Late st Contact Info) Description 03/18/2017 Orders Only [facility] [place] Health Information Management [address] [place] [id number] Scanning, Provider Social History Tobacco Use Types Packs/Day Years Used Date Smoking Tobacco: Former Cigarettes Q uit: 02/12/2012 Alcohol Use Standard Drinks/Week Comments Yes 0 (1 standard drink = 0.6 oz pur e alcohol) Comments Unknown Sex and Gender Information Value Date Recorded Sex Assigned at Not on file 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 Gender Identity Not on file Sexual Orientation Not on file documented as of this encounter Plan of Treatment Not on file documented as of this encounter Procedures Procedure Name Priority Date/Time Associated Diagnosis Comments CARDIOLOGY DOCUMENT SCAN 03/18/2017 documented in this encounter Results * Cardiology Document Scan (03/18/2017) Anatomical Region Laterality Modality Other us Provider Scanning CV CARDIAC SERVICES PROCEDURES Final Result documented in this encounter Visit Diagnoses Not on filedocumented in this encounter Care Teams Hiv Nurse Relationship Specialty Start Date End Date Elías Flowers MD [address] [facility] [place] [address] PCP - General 07/05/16 03/27/17 Nicholas Ritchie MD [address] [place] [address] PCP - General Internal Medicine 03/28/17 06/20/17 Jennifer Estrella MD [address] [place] [address] PCP - General Family Practice 06/21/17 08/14/18 Nicholas Ritchie MD [address] [place] [address] PCP - General Internal Medicine 08/15/18 05/15/20 Betty Veliz DO [address] [facility] [place] [address] PCP - General Family Medicine 05/23/20 12/04/21 Rajiv Hawley DO [address] [facility] [place] [address] PCP - General Internal Medicine 12/05/21 12/19/23 [facility] [address] [place] [address] PCP - General 12/20/23 10/06/24 Ezekiel Perrin MD [address] [employer] [address] [place] [address] PCP - General Family Medicine 10/07/24 01/04/25 Britney Harris NP [address] [employer] [address] [place] [address] PCP - General Family Medicine 01/05/25 Daniel Esposito MD [address], [address] [place] [address] Auriculotherapist Cardiovascular Disease 06/19/23 documented as of this encounter
--- OUTSIDE RECORDS SUMMARY | 2025-01-28 09:09 | XMS_ITS | Encounter Summary ---
Author Organization [facility] Healthcare Address [address] [place] [address] Care Team Providers Care Plant Utility Person Name Role Phone Nicholas Ritchie MD Primary Care Provider [phone] Jennifer Estrella MD Primary Care Provider Nicholas Ritchie MD Primary Care Provider [phone] Betty Veliz DO Primary Care Provider [phone] Rajiv Hawley DO Primary Care Provider [phone] Daniel Esposito MD Unavailable [phone] Magdiel [facility] Primary Care Provider [phone] Ezekiel Perrin MD Primary Care Provider [phone] Britney Harris NP Primary Care Provider [phone] Encounter Details Date Type Department Care Team (Late st Contact Info) Description 05/12/2017 Orders Only [facility] [place] Health Information Management [address] [place] [id number] Scanning, Provider Social History Tobacco Use Types Packs/Day Years Used Date Smoking Tobacco: Light Smoker Alcohol Use Standard Drinks/Week Comments Yes 0 (1 standard drink = 0.6 oz pur e alcohol) Comments No Sex and Gender Information Value Date Recorded Sex Assigned at Not on file 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 Gender Identity Not on file Sexual Orientation Not on file documented as of this encounter Plan of Treatment Not on file documented as of this encounter Procedures Procedure Name Priority Date/Time Associated Diagnosis Comments SCAN - RADIOLOGY/IMAGING 05/12/2017 documented in this encounter Results * SCAN - RADIOLOGY/IMAGING (05/12/2017) Anatomical Region Laterality Modality Other us Provider Scanning Final Result documented in this encounter Visit Diagnoses Not on filedocumented in this encounter Care Teams Plant Utility Person Relationship Specialty Start Date End Date Nicholas Ritchie MD PCP - General Internal Medicine 03/28/17 06/20/17 Jennifer Estrella MD [address] [place], [place] [address] PCP - General Family Practice 06/21/17 08/14/18 Nicholas Ritchie MD PCP - General Internal Medicine 08/15/18 05/15/20 Betty Veliz DO [address] [place], [place] [address] PCP - General Family Medicine 05/23/20 12/04/21 Rajiv Hawley DO [address] [place], [place] [address] PCP - General Internal Medicine 12/05/21 12/19/23 [facility] [address] [place] [address] PCP - General 12/20/23 10/06/24 Ezekiel Perrin MD [address] [id number] PCP - General Family Medicine 10/07/24 01/04/25 Britney Harris NP [address] [address] PCP - General Family Medicine 01/05/25 Daniel Esposito MD [address] [place] [address] [facility] Cardiovascular Disease 06/19/23 documented as of this encounter
--- OUTSIDE RECORDS SUMMARY | 2025-01-28 09:09 | XMS_ITS | Clinical Summary ---
Author Organization [facility] [address] Address [address] [place] [address] Care Team Providers Care Search Marketing Specialist Name Role Phone Daniel Esposito MD Unavailable [phone] Britney Harris NP Primary Care Provider Allergies Active Allergy Reactions Criticality Noted Date Comments Amitriptyline Rash,Vomiting Medium 03/18/2004 rash Erythromycin Gadolinium-Containing Contrast Media Other (See comments) Low 06/11/2023 Iodinated Contrast Media Vomiting Low 06/25/2023 Nitrofurantoin Monohyd/M-Cryst Unknown 03/19/2017 Listed as allergy from another hospital, does not remember her reaction Nitrofurantoin Rash Medium 06/14/2015 Sulfamethoxazole-Trimetho prim Hives,Itching Medium 10/07/2017 Medications ezetimibe (ZETIA) 10 mg tablet take 1 Tablet by oral route every day 0 0 013 Active losartan (COZAAR) 100 mg tablet take 1 tablet by oral route every day 0 0 013 Active aspirin (ASPIR-81) 81 mg tablet Take one by mouth one time per day 0 0 008 Active fenofibrate (TRICOR) 54 mg tablet 019 Active nitroglycerin (NITROSTAT) 0.[address] 0.4 mg under the tongue every 5 (five) minutes as needed for chest pain Active atorvastatin (LIPITOR) 40 mg tabletIndications :Coronary artery disease involving [place] coronary artery of [place] heart without angina pectoris,Mixed hyperlipidemia Take 1 tablet (40 mg total) by mouth daily 90 tablet 3 020 Active ondansetron ODT (ZOFRAN-ODT) 4 mg disintegrating tablet Take 1 tablet (4 mg total) by mouth every 8 (eight) hours as needed 021 Active blood-glucose meter (Freestyle InsuLinx) [facility] Freestyle InsuLinx meter Active lancets (freestyle) 28 gauge misc FreeStyle Lancets 28 gauge Active blood glucose diagnostic (FreeStyle Lite Strips) strip FreeStyle Lite Strips Active empty container (sharps container) misc Sharps Container Active clopidogreL (PLAVIX) 75 mg tablet Take 1 tablet (75 mg total) by mouth daily 90 tablet 1 023 Active carvediloL (COREG) 25 mg tablet Take 1 tablet (25 mg total) by mouth 2 (two) times a day with meals 180 tablet 1 023 Active SITagliptin phos-metformin (JANUMET) 50-1,000 mg per tablet Take 2 tablets by mouth daily Active plecanatide 3 mg tablet Take 1 tablet (3 mg total) by mouth daily 30 tablet 9 024 Active Bacillus coagulans-inulin (Probiotic Formula, inulin,) 1 billion-250 cell-mg capsule Take by mouth 023 Active acetaminophen ER (Tylenol Arthritis Pain) 650 mg 8 hr tablet Take 2 tablets (1,300 mg total) by mouth 023 Active cholecalciferol (VITAMIN D-3) 5,000 unit capsule 025 Active empagliflozin (JARDIANCE) 25 mg tablet 1 tablet (25 mg total) daily Active insulin lispro (HumaLOG, ADMELOG) 100 unit/mL pen for injection Use per MD sliding scale TID QAC. Maximum 48 Units per day. 45 mL 1 025 Active pen needle, diabetic 32 gauge x 5/32 needle Use to inject insulin 5 times daily as directed. 500 each 025 Active glucagon (BAQSIMI) 3 mg/actuation spray,non-aerosol Administer 1 spray into one nostril as needed (Hypoglycemia ) 2 each 1 025 Active LANTUS 100 unit/mL (3 mL) pen for injection 30 Units BID. 54 mL 1 Active blood-glucose sensor (FreeStyle Maldonado 3 Plus Sensor) device Change sensor every 15 days 5 each 3 Active LANTUS SOLOSTAR 100 unit/mL (3 mL) insulin pen 74 Units 018 2024 Discontinued(R eoradhaer) Mounjaro 2.5 mg/0.5 mL pen injector injection Inject 0.5 mL (2.5 mg total) under the skin every 7 days 025 2024 Discontinued insulin lispro (HumaLOG, ADMELOG) 100 unit/mL pen for injection Inject 1-4 times per day as directed. 135 mL 4 025 2024 Discontinued Active Problems Problem Noted Date Diagnosed Date Right carotid bruit 12/20/2023 Positive colorectal cancer screening using Colog uard test 06/19/2023 Family history of colon cancer 06/16/2023 CKD stage 3 due to type 2 diabetes mellitus 09/2022 Tobacco use 05/21/2020 H/O TIA (transient ischemic attack) and stroke 0 03/24/2019 Palpitations 03/24/2019 Chronic chest pain 03/24/2019 Chronic dyspnea 03/24/2019 Chronic fatigue 09/18/2018 Diaphoresis 09/18/2018 Precordial pain 09/17/2018 Cardiomyopathy, ischemic 02/19/2018 History of coronary artery stent placement 08/15 Vitamin D deficiency 04/18/2017 Non-rheumatic mitral regurgitation 03/26/2017 Hyperlipidemia associated with type 2 diabetes ab eduardo 03/19/2017 Overview (03/19/2017): Hyperlipidemia Assessment & Plan (01/05/2025 8:04 PM TRIMMER SORTER): At goal on current therapy. Hypertension associated with diabetes 03/19/2017 Overview (03/19/2017): Hypertension Assessment & Plan (01/05/2025 8:04 PM TRIMMER SORTER): At goal on current therapy. BROOKE on CPAP 03/19/2017 Assessment & Plan (06/11/2024 10:42 AM CDT): Due to the patient feeling like the pressure is not strong enough I will increase the patient's CPAP pressure to 10 cm water pressure while sleeping. Her DME is [facility] Assessment & Plan (06/11/2023 10:31 AM CDT): Patient continue to wear her CPAP at 8 cm water pressure while sleeping. Her DME will be [facility]. I have requested a download. Assessment & Plan (06/05/2022 10:31 AM CDT): Patient continue to wear her CPAP at 8 cm water pressure while sleeping. Her DME will be [facility]. I have sent an order over to supply the patient with a new CPAP set at 8 cm water pressure. Assessment & Plan (06/01/2021 11:24 AM CDT): Patient continue to wear her CPAP at 8 cm water pressure while sleeping. Her DME will be [facility]. The patient states that she needs to see a different style of mask the nasal pillows is irritating her nose. The patient is aware of the recall in has registered her CPAP. She denies using a cleaning device on her machine. Assessment & Plan (10/04/2020 11:32 AM CDT): The patient continues to benefit from CPAP at 8 cm water pressure. Her DME supplier is [facility]. I will send an order to have them show her variety of new styles of nasal pillows mask and head gear. She also needs a new hose, filters and a new Smart Card. Fibromyalgia 03/19/2017 Diabetes mellitus 03/19/2017 Assessment & Plan (01/05/2025 8:07 PM TRIMMER SORTER): A1c is well above goal. I recommended that we increase her basal insulin dose and start prandial insulin. If glucose is < 100 before your meal: no Humalog insulin at all If glucose is 100-149: take 6 Units of Humalog If glucose is 150-199: take 8 Units of Humalog If glucose is 200-249: take 10 Units of Humalog If glucose is 250-299: take 12 Units of Humalog If glucose is 300-349: take 14 Units of Humalog If glucose > 350: take 16 Units of Humalog We will also increase the Lantus to 30 Units twice per day. Continue current doses of Janumet and Jardiance. She did not tolerate GLP1RA's in the past. Her PCP has ordered labs and she will have these drawn soon. I have asked that she bring these in to her next visit in 4 weeks. I am particularly interested in her kidney function; if eGFR is < 45, her Janumet dose will have to be reduced. She met with our CDE today to review the correct dosing and administration of the prandial insulin. Continue routine eye exams. She follows with podiatry and has been referred for a vascular exam due to decreased pedal pulses. Old PA (myocardial infarction) 03/19/2017 Overview (03/19/2017): Myocardial infarction Coronary artery disease invo lving [place] coronary artery of [place] heart without angina pectoris 01/14/2014 Overview (05/17/2016): Coronary arteriosclerosis in [place] artery Arthralgia 06/27/2013 Overview (05/17/2016): JOINT PAIN-UNSPEC Resolved Problems Problem Noted Date Diagnosed Date Resolved Date Hand numbness 03/24/2019 12/05/2021 Nicotine addiction 03/24/2019 2 Preoperative cardiovascular examination 09/18/2018 05/21/2020 Mitral valve prolapse 03/19/20172019 Encounters Date Type Department Care Team Description 01/25/2025 Telephone [facility] [address] [place] [id number] Abdiel Conley MD upload 01/15/2025 Telephone [facility] [address] [place] [phone] Abdiel Conley MD Appointment 01/13/2025 Orders Only [facility] [address] [place] [phone] Abdiel Conley MD 01/05/2025 11:00 AM TRIMMER SORTER Office Visit [facility] [address] [place] [address] Type 2 diabetes mellitus with hyperglycemia, with long-term current use of insulin (HCC) (Primary Dx) 01/05/2025 10:00 AM TRIMMER SORTER Office Visit [facility] [facility] [facility] [address] [place] [address] Abdiel Conley MD Type 2 diabetes mellitus with other specified complication, unspecified whether mcfp insulin use (HCC) (Primary Dx); Hyperlipidemia associated with type 2 diabetes mellitus (HCC); Hypertension associated with diabetes (HCC) 11/24/[address] [facility] [address] [address] [address] [place] [address] Daniel Esposito MD poor blood flow 11/16/[address] [facility] Pulmonary Michelle [address] [place] [address] Aniyah Rosales NP from Last 3 Months Surgical History Surgery Date Site/Laterality Comments HYSTERECTOMY 02/11/1985 - 02/10/1986 Hysterectomy CARDIAC STENT PLACEMENT x5 APPENDECTOMY ADHESIOLYSIS Medical History Medical History Date Comments Myocardial infarction (HCC) Myoc ardial infarction Hyperlipidemia Hyperlipidemia Hypertension Hypertension Hx Other Medical Diabetes Type I I Sleep apnea Coronary artery disease Diabetes mellitus Fibromyalgia Smoking Mitral valve prolapse Sleep apnea Lyme disease Seizure (HCC) 2017 Long sz 2nd low BS Awareness under anesthesia Chronic constipation Irritable bowel syndrome GERD (gastroesophageal reflux disease) Chronic kidney disease Type 2 diabetes mellitus Endometriosis Family History Medical History Relation Name Comments Heart attack Father Myocardial Infa rction; Colon cancer Maternal Grandmother Other Mother Angina; Relation Name Status Comments Father Alive Maternal Grandmother Mother Alive Social History Tobacco Use Types Packs/Day Years Used Date Smoking Tobacco: Every Day Cigarettes 0.5 46.5 Started: 07/17/1978 Smokeless Tobacco: Never Tobacco Cessation:Ready to Q uit: Not Asked; Counseling Given: Not Answered Alcohol Use Standard Drinks/Week Comments Yes 0 (1 standard drink = 0.6 oz pur e alcohol) AUDIT-C Answer Date Recorded Q1: How often do you have a drink containing alc ohol? Monthly or less 07/22/2023 Q2: How many drinks containi ng alcohol do you have on a typical day when you are drinking? 1 or 2 07/22/2023 Q3: How often do you have si x or more drinks on one occasion? Never 07/22/2023 Personal Safety Answer Date Recorded Have you ever been in or are you currently in a harmful physical or emotional relationship or is someone making you feel afraid or unsafe? Denies 07/22/2023 Comments No Sex and Gender Information Value Date Recorded Sex Assigned at Not on file Legal Sex Female 12:32 AM TRIMMER SORTER Gender Identity Not on file Sexual Orientation Not on file Last Filed Vital Signs Vital Sign Reading Time Taken Comments Blood Pressure 108/69 01/05/2025 9:57 AM TRIMMER SORTER Pulse 83 01/05/2025 9:57 AM TRIMMER SORTER Temperature 35.9 C (96.6 F) 06/11/2024 10:30 AM CDT Respiratory Rate 16 06/11/2024 10:30 AM CDT Oxygen Saturation 97% 01/05/2025 9:57 AM TRIMMER SORTER Inhaled Oxygen Concentration - - Weight 70.3 kg (155 lb) 01/05/2025 9:57 AM TRIMMER SORTER Height 165.1 cm (5' 5) 01/05/2025 9:57 AM TRIMMER SORTER Body Mass Index 25.79 01/05/2025 9:57 AM TRIMMER SORTER Plan of Treatment Health Maintenance Due Date Last Done Comments Albumin Creatinine Ratio, Urine 1960 Breast Cancer Screening-Mammogram 1960 Depression Screening 1960 Hepatitis C Screening 1960 Dilated Eye Exam 1961 Foot Exam 1961 DTaP/Tdap/Td Vaccine (1 - Tdap) 1972 Hepatitis B Screening 07/04/1979 Regular Well Visit/Exam 18-64 07/04/1979 Pneumococcal vaccine <65 (1 of 2 - PCV) 1980 Lung Cancer Screening 07/04/2011 Zoster Vaccine (1 of 2) 07/04/2011 eGFR 03/26/2024 03/26/2023, 03/14, 03/26/2017, Additional history exists Influenza Vaccine (#1) 2024 Lipid Panel 04/01/2025 04/01/2024, 03/14, 12/19/2022, Additional history exists Hemoglobin A1C 07/05/2025 01/05/2025, 03/20/2017 Colon Cancer Screening-Colonoscopy 07/21/2033 07/22/2023 Colon Cancer Screening-CT Colonography Discontinued 07/22/2023 Colon Cancer Screening-DNA Stool Discontinued 07/22/19 Colon Cancer Screening-FIT Discontinued 07/22/2023 Colon Cancer Screening-Sigmoidoscopy Discontinued 07/22/2023 Medical Devices Implanted Type Area Back Padder Device Identifier Shelf Expiration Date Model / Serial / Lot System Coronary Stent Synergy Pebax Everolimus Eluting [place] Chromium Plga L32 Mm L144 Cm Od2.25 Mm Radiopaque 1 Access Port Inflation Lumen Accepts .014 In Guidewire - [id number] Implanted:Qty: 1 on 03/25/2017 by Flakita Del Angel MD at [facility] [employer] [facility] [id number] 220 / / [id number] System Coronary Stent Synergy Pebax Everolimus Eluting [place] Chromium Plga L20 Mm L144 Cm Od3 Mm Radiopaque 1 Access Port Inflation Lumen Accepts .014 In Guidewire - [id number] Implanted:Qty: 1 on 03/25/2017 by Flakita Del Angel MD at [facility] [employer] [facility] 10/15/2017 [id number] 300 / / [id number] System Coronary Stent Synergy Pebax Everolimus Eluting [place] Chromium Plga L38 Mm L144 Cm Od2.5 Mm Radiopaque 1 Access Port Inflation Lumen Accepts .014 In Guidewire - [id number] Implanted:Qty: 1 on 03/25/2017 by Flakita Del Angel MD at [facility] [employer] [facility] 08/08/2017 [id number] 250 / / [id number] System Coronary Stent Synergy Pebax Everolimus Eluting [place] Chromium Plga L20 Mm L144 Cm Od3.5 Mm Radiopaque 1 Access Port Inflation Lumen Accepts .014 In Guidewire - [id number] Implanted:Qty: 1 on 03/25/2017 by Flakita Del Angel MD at [facility] [employer] [facility] 10/15/2017 [id number] 350 / / [id number] Procedures Procedure Name Priority Date/Time Associated Diagnosis Comments POCT HEMOGLOBIN A1C Routine 01/05/2025 1 0:05 AM TRIMMER SORTER Type 2 diabetes mellitus with other specified complication, unspecified whether watermaster insulin use (HCC) POCT LIPID PANEL Routine 04/01/2024 10:1 7 AM TRIMMER SORTER Coronary artery disease involving [place] coronary artery of [place] heart without angina pectoris Hyperlipidemia associated with type 2 diabetes mellitus (HCC) COLONOSCOPY 07/22/2023 1:14 PM CDT COMPREHENSIVE METABOLIC PANEL Routine 03/26/2023 2:32 PM TRIMMER SORTER from Last 3 Months or Most Recently Relevant to Health Maintenance Results * (ABNORMAL) POCT hemoglobin A1c (01/05/2025 10:05 AM TRIMMER SORTER) Hemoglobin A1C, POC 10.6(A) 4.0 - 5.6 % Capillary blood 01/05/2025 1 0:05 AM TRIMMER SORTER Abdiel Conley MD POINT OF CARE TEST ODALIS TAYLOR Final Result * POCT lipid panel (04/01/2024 10:17 AM TRIMMER SORTER) Cholesterol, POC 128 mg/dL HDL, POC 28 mg/dL Triglycerides, POC 229 mg/dL LDL Cholesterol POC 54 mg/dL Chol/HDL Ratio, POC 1.9 Non-HDL Cholesterol, POC 100 mg/dL Cholesterol Total, POC 128 mg/dL Capillary blood 04/01/2024 1 0:17 AM TRIMMER SORTER Daniel Esposito MD POINT OF CARE TEST ORDERA BLES Final Result * Colonoscopy (07/22/2023 1:14 PM CDT) Anatomical Region Laterality Modality Other Narrative Procedure Note Chriss Louis MD - 07/22/2023 1:14 PM CDT ENDOSCOPY LAB Patient Name: Carley Gonsales Procedure Date: 07/22/2023 1:14 PM Date of : 1960 Admit Type: Outpatient Age: 63 Gender: Female Attending MD: Fabby Lopez Room: [facility] ENDOSCOPY ROOM 05 Note Status: Finalized Procedure: Colonoscopy Indications: Screening for colorectal malignant neoplasm, Thisis the patient's first colonoscopy, Incidental -Positive Cologuard test Providers: Chriss Louis M.D. Referring MD: Rajiv Hawley D.O. Medicines: Monitored Anesthesia Care Complications: No immediate complications. Estimated Blood Loss: Estimated blood loss was minimal. Procedure: Pre-Anesthesia Assessment: - Prior to the procedure, a History and Physicalwas performed, and patient medications, allergies and sensitivities were reviewed. The patient'stolerance of previous anesthesia was reviewed. The benefits, risks and alternatives of theprocedure and sedation were discussed and informed consentwas obtained. All questions were answered. Please referto the signed informed consent document in the medical record. The scope was passed under direct vision.The [id number] was introduced through the anusand advanced to the cecum, identified by appendiceal orifice and ileocecal valve. The colonoscopy was extremely difficult due to a tortuous colon. Successful completion of the procedure was aided by changing the patient to a supine position, changing the patient to a prone position and changing endoscopes. The patient tolerated the procedurewell. The quality of the bowel preparation was evaluated using the BBPS ([place]inton Bowel Preparation Scale)with scores of: Right Colon = 3, Transverse Colon = 3and Left Colon = 3 (entire mucosa seen well with no residual staining, small fragments of stool oropaque liquid). The total BBPS score equals 9. The bowel preparation used was GoLYTELY via split dose instruction. Findings: The perianal and digital rectal examinations were normal. Retroflexion in the rectum was not performed due to anatomy. A 10 mm polyp was found in the rectum. The polyp wassemi-pedunculated. The polyp was removed with a cold snare. Resection was complete, butthe polyp tissue was not retrieved as the polyp migrated proximally. To prevent bleeding after the polypectomy, one hemostatic clip was successfully placed (MR conditional). The sigmoid colon was significantly tortuous. Advancing the scope required withdrawing the scope and replacing with the pediatric colonoscope. Still unable to traverse. Advancing the scope required withdrawing the scope and replacing with the adult endoscope. Able to traverse it; however, unable to complete examination. Advancing the scope required changing the patient to a supine position, changingthe patient to a prone position and withdrawing the scope and replacingwith the pediatric colonoscope and able to complete the examination. A non-bleeding superficial mucosal tear as a result of scope traumawas found in the sigmoid colon. This was medium in size. An 8 mm polyp was found in the ascending colon. The polyp wassessile. The polyp was removed with a cold snare. Resection and retrieval were complete. The exam was otherwise without abnormality. Impression: - One 10 mm polyp in the rectum, removed with acold snare. Complete resection. Polyp tissue notretrieved. Clip (MR conditional) was placed. - Tortuous colon. - Minor superficial mucosal tear in the sigmoidcolon. - One 8 mm polyp in the ascending colon, removedwith a cold snare. Resected and retrieved. - The examination was otherwise normal. Recommendation: - Discharge patient to home. - Await pathology results. - Resume aspirin at prior dose today. - Resume Plavix (clopidogrel) at prior dosetomorrow. - Use miralax as needed for constipation. - Continue present medications (trulance). - Repeat colonoscopy in 3 years for surveillance. - Return to my office as previously scheduled. - We performed biopsies during your proceduretoday. If you do not receive the result from my office in, please contact my office at [phone]. Attending Participation: I personally performed the entire procedure. Electronically signed by Chriss Louis MD Chriss Louis M.D. 07/22/2023 3:04:24 PM Number of Addenda: 0 Note Initiated On: 07/22/2023 1:14 PM us Chriss Louis MD ENDOSCOPY PROCEDUR ES Final Result * (ABNORMAL) Comprehensive metabolic panel (03/26/2023 2:32 PM TRIMMER SORTER) Glucose 228(H) 70 - 99 mg/dL [facility] - 01 BUN 14 8 - 27 mg/dL [facility] - 01 Creatinine, Serum 1.16(H) 0.57 - 1.00 mg/dL [facility] - 01 eGFR 54(L) >59 mL/min/1.7 3 [facility] - 01 BUN/creat ratio 12 12 - 28 [facility] - 01 Sodium 137 134 - 144 mmol/L [facility] - 01 Potassium, sr 4.6 3.5 - 5.2 mmol/L [facility] - 01 Chloride 101 96 - 106 mmol/L [facility] - 01 CO2 21 20 - 29 mmol/L [facility] - 01 Calcium 10.0 8.7 - 10.3 mg/dL [facility] - 01 Protein, sr 6.5 6.0 - 8.5 g/dL [facility] - 01 Albumin 4.8 3.9 - 4.9 g/dL [facility] - 01 Globulin, Total 1.7 1.5 - 4.5 g/dL [facility] - 01 A/G Ratio 2.8(H) 1.2 - 2.2 [facility] - 01 Bilirubin, Total 0.4 0.0 - 1.2 mg/dL [facility] - 01 Alk phos 90 44 - 121 IU/L [facility] - 01 AST 14 0 - 40 IU/L [facility] - 01 ALT 11 0 - 32 IU/L [facility] - 01 03/26/2023 2:32 PM TRIMMER SORTER 03/26/2023 Narrative [facility] - 03/27/2023 7:10 AM TRIMMER SORTER Performed at: - [facility] [address] [id number] Felt Hat Inspector And Packer: Clement Wakefield PhD, Phone: [phone] us Rosa Larson MD LAB BLOOD ORDERABLES Final Result [facility] - 01 from Last 3 Months or Most Recently Relevant to Health Maintenance Insurance [employer] [facility] Advance Directives For more information, please contact: [phone] * Full Code (Latest Code Status on File) Date Activated Date Inactivated Comments 07/22/2023 12:33 PM 07/22/2023 7:46 PM * Full Code Date Activated Date Inactivated Comments 03/25/2017 4:14 PM 03/27/2017 3:39 PM * Full Code Date Activated Date Inactivated Comments 03/20/2017 9:23 AM 03/22/2017 9:09 PM Care Teams Search Marketing Specialist Relationship Specialty Start Date End Date Britney Harris NP [address] [address] PCP - General Family Medicine 01/05/25 Daniel Esposito MD [address] [place] [address] Phone Engineer Cardiovascular Disease 06/19/23
--- OUTSIDE RECORDS SUMMARY | 2025-01-28 09:09 | XMS_ITS | Encounter Summary ---
Author Organization [facility] Address [address] [place] [address] Care Team Providers Care See Supervisor Name Role Phone Daniel Esposito MD Unavailable [phone] Britney Harris NP Primary Care Provider [phone] Reason for Visit * Reason Onset Date Comments upload 01/25/2025 Encounter Details Date Type Department Care Team (Late st Contact Info) Description 01/25/2025 Telephone [facility] [address] [facility] [address] [place] [address] Abdiel Conley MD [facility] [address] [place], [place] [id number] upload Social History Tobacco Use Types Packs/Day Years Used Date Smoking Tobacco: Every Day Cigarettes 0.5 46.5 Started: 07/17/1978 Smokeless Tobacco: Never Alcohol Use Standard Drinks/Week Comments Yes 0 [...] on file Legal Sex Female 12:32 AM DRIER AND EVAPORATOR OPERATOR Gender Identity Not on file Sexual Orientation Not on file documented as of this encounter Miscellaneous Notes * Telephone Encounter - Dominga Su - 01/27/2025 12:03 PM CST I sent it two days ago to provider. The upload of reading from sensor R AND EVAPORATOR OPERATOR * Telephone Encounter - Narcisa Champagne CMA - 01/25/2025 2:39 PM CST Please pull upload from [employer] per sydnee we do not have access to gdrive today she states it isin gdrive R AND EVAPORATOR OPERATOR * Telephone Encounter - Sydnee Chappell - 01/25/2025 10:41 AM DRIER AND EVAPORATOR OPERATOR Pt calling in to have her nidia uploaded. It is scanned in under g-drive could you add to chart andsend back to provider? R AND EVAPORATOR OPERATOR documented in this encounter Plan of Treatment Not on file documented as of this encounter Visit Diagnoses Not on filedocumented in this encounter Care Teams See Supervisor Relationship Specialty Start Date End Date Britney Harris NP [address] [address] PCP - General Family Medicine 01/05/25 Daniel Esposito MD [address] [address] Siding Coreboard Inspector Cardiovascular Disease 06/19/23 documented as of this encounter
== END 2025-01-28 08:51 | disposition home or self-care (01) ==
PROVIDERS: PCP Nurse Practitioner Family; Visit Provider Nurse Practitioner Family
DX: R09.89 Other specified symptoms and signs involving the circulatory and respiratory systems (principal); I73.9 Peripheral vascular disease, unspecified
CPT/HCPCS: 93922